=== PATIENT | female | born 1970 | race Caucasian/White ===

== ENCOUNTER 2017-07-30 21:13 | Emergency (ER) | payer OTHER ==
[~2017-07-30] VITALS: Ht 165.1 cm; Wt 52.2 kg
[2017-07-30] MEDS ORDERED: IBUP200C75 PO (21:34)
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
[2017-07-30] MEDS ORDERED: RX-NAPROXEN (NAPROSYN) 250 MG TAB PPK#4 PO STA (22:57)
[2017-07-30] MEDS ORDERED: RX-CYCLOBENZAPRINE 10 MG (FLEXERIL) TAB PPK#3 PO STA (22:57)
[2017-07-30] MEDS ORDERED: CYCL10TA9 PO (23:00)
[2017-07-30] MEDS ORDERED: NAPR500T4 PO (23:00)
[2017-07-30 23:16] VITALS: BP 142/78
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
== END 2017-07-30 23:14 | disposition home or self-care (01) ==
LOC: EDUNIT# 21:13 → ER 21:15
DX: S00.83XA Contusion of other part of head, initial encounter (principal); S80.02XA Contusion of left knee, initial encounter; G43.909 Migraine, unspecified, not intractable, without status migrainosus; G51.0 Bell's palsy; F17.210 Nicotine dependence, cigarettes, uncomplicated; V49.49XA Driver injured in collision with other motor vehicles in traffic accident, initial encounter
CPT/HCPCS: 70450; 72125; 73562; 80306; 84703; 99283